=== PATIENT | male | born 1970 | race Caucasian/White ===

== ENCOUNTER 2019-02-07 22:22 | Emergency (ER) | payer OTHER ==
[~2019-02-07] VITALS: Ht 177.8 cm; Wt 88.0 kg
[2019-02-07] MEDS ORDERED: AZOR 5-40 MG T1 EACH ORAL (22:36)
--- NOTE | 2019-02-07 22:45 | NUR ---
ED Nurse Note: Recieved pt from home, here with c/o left groin pain intermittently for past week, pain has increased and worse when he tries to sleep, pt denies nausea, vomiting, fevers, or diarrhea, denies any other discomforts or complaints, pt gowned and assisted to monitoring, will resume care as ordered and closely monitor.
--- NOTE | 2019-02-07 22:54 | Emergency Room Report ---
History of Present Illness General Chief Complaint: Pelvic Pain Source: Patient Present Illness HPI Is a 48-year-old male with history of high blood pressure. He presents with chief complaint of right lower quadrant pain. Is been intermittently for last week. No fever chills. When to come on is sharp and lasted for an hour. No nausea vomiting or diarrhea. No fever chills but no trauma. No urinary complaint. No pain right now. Allergies: Coded Allergies: No Known Allergies (Unverified , 02/07/19) Patient History Past Medical History: see triage record, old chart reviewed, HTN Past Surgical History: none Pertinent Family History: none Social History: Denies: smoking Immunizations: other Reviewed Nursing Documentation: PMH: Agreed; PSxH: Agreed Nursing Documentation-PMH Hx Hypertension: Yes Review of Systems Eye: Denies: eye pain, blurred vision ENT: Denies: ear pain, nose congestion, throat swelling Respiratory: Denies: cough, shortness of breath Cardiovascular: Denies: chest pain, palpitations Gastrointestinal: Reports: abdominal pain; Denies: diarrhea, nausea, vomiting Musculoskeletal: Denies: back pain, joint pain Skin: Denies: rash Neurological: Denies: headache, numbness Endocrine: Denies: increased thirst, increased urine Hematologic/Lymphatic: Denies: easy bruising All Other Systems: negative except mentioned in HPI Physical Exam Vital Signs Date Time Temp Pulse Resp B/P (MAP) Pulse Ox O2 Delivery O2 Flow Rate FiO2 02/07/19 22:32 98.2 68 16 168/97 (120) 95 Room Air Vitals with high blood pressure Sp02 EP Interpretation: reviewed, normal General Appearance: well appearing, no apparent distress, alert Head: normocephalic, atraumatic Eyes: bilateral eye PERRL, bilateral eye EOMI ENT: hearing grossly normal, normal pharynx Neck: full range of motion, supple, no meningismus Respiratory: chest non-tender, lungs clear, normal breath sounds Cardiovascular #1: regular rate, rhythm, no murmur Gastrointestinal: normal bowel sounds, non tender, no mass, no organomegaly, no bruit, non-distended Musculoskeletal: back normal, gait/station normal, normal range of motion Psychiatric: mood/affect normal Medical Decision Making Diagnostic Impression: Primary Impression: Abdominal pain Qualified Codes: R10.31 - Right lower quadrant pain ER Course This patient presents with abdominal pain. No evidence of an acute abdomen. No obstruction. No kidney stone or appendicitis. Will discharge home. CT/MRI/US Diagnostic Results CT/MRI/US Diagnostic Results : Imaging Test Ordered: CT abdomen pelvis Impression Neg per radiologist Last Vital Signs Date Time Temp Pulse Resp B/P (MAP) Pulse Ox O2 Delivery O2 Flow Rate FiO2 02/07/19 22:32 98.2 68 16 168/97 (120) 95 Room Air Status: improved Disposition: HOME, SELF-CARE Condition: Stable Scripts Ibuprofen* (MOTRIN*) 600 Mg Tablet 600 MG ORAL THREE TIMES A DAY, #30 TAB 0 Refills Prov: Yoel Graham MD 02/08/19 Additional Instructions: Follow up with your doctor in 7 days. Return if symptoms worsen. Yoel Graham MD Feb 07, 2019 22:54
[2019-02-07] MEDS ORDERED: Ketorolac 30mg Inj IV ONE (23:00)
[2019-02-07 23:31] LABS: BASOPHILS % (AUTO) 0.6 % (0.0-2.0); EOSINOPHILS % (AUTO) 3.4 % (0.0-3.0); HEMATOCRIT 42.5 % (42.0-52.0); HEMOGLOBIN 15.4 G/DL (14.2-18.0); LYMPHOCYTES % (AUTO) 23.2 % (20.0-45.0); MEAN CORPUSCULAR VOLUME 84 FL (80-99); MONOCYTES % (AUTO) 12.6 % (1.0-10.0); NEUTROPHILS % (AUTO) 60.2 % (45.0-75.0); PLATELET COUNT 214 K/UL (150-450); RED BLOOD COUNT 5.07 M/UL (4.70-6.10); WHITE BLOOD COUNT 5.3 K/UL (4.8-10.8)
[2019-02-07 23:42] LABS: ANION GAP 8 mmol/L (5-15); BLOOD UREA NITROGEN 13 mg/dL (7-18); CALCIUM 9.3 MG/DL (8.5-10.1); CARBON DIOXIDE 31 MMOL/L (21-32); CHLORIDE 105 MMOL/L (98-107); CREATININE 1.1 MG/DL (0.55-1.30); POTASSIUM 3.3 MMOL/L (3.5-5.1); SODIUM 144 MMOL/L (136-145)
--- NOTE | 2019-02-07 23:56 | Diagnostic Imaging Report ---
Indication: Abdominal pain for one week Technique: Spiral acquisitions obtained through the abdomen and pelvis. No oral contrast utilized, per emergency room physician request No IV contrast utilized, per referring physician request.. Multiplanar reconstructions were generated. Total dose length product 1178 mGycm. CTDIvol(s) 21 mGy. Dose reduction achieved using automated exposure control Comparison: None Findings: No evidence of colonic diverticulosis or diverticulitis is evident. The appendix is normal. No small bowel distention. No free or loculated intraperitoneal gas or fluid is evident. The distal esophagus, stomach, duodenum are unremarkable. Lack of IV contrast limits assessment of solid organs. The liver demonstrates a cyst in segment 7. The gallbladder is nondistended, otherwise unremarkable. The pancreas is unremarkable. The spleen is borderline enlarged, measuring 14 cm long axis dimension. The adrenals are unremarkable. The right kidney demonstrates a 2 cm interpolar region cyst. The left kidney is unremarkable. No renal or ureteral calculi, hydronephrosis, or hydroureter demonstrated. No retroperitoneal or mesenteric mass or adenopathy. No pelvic mass or adenopathy. Unremarkable bladder. The included lung bases are clear. The bones are unremarkable, Impression: Essentially unremarkable exam. No acute or significant abnormality demonstrated. Incidental finding of hepatic and renal cysts This agrees with the preliminary interpretation provided overnight by [facility] teleradiology service. The CT scanner at [facility] is accredited by the [employer] and the scans are performed using protocols designed to limit radiation exposure to as low as reasonably achievable to attain images of sufficient resolution adequate for diagnostic evaluation.
[2019-02-08] VITALS: BP 151/82
--- NOTE | 2019-02-08 00:10 | NUR ---
ER DISCHARGE NOTE: Patient is cleared to be discharged per ERMD, pt is aox4, on room air, with stable vital signs. pt was given dc and prescription instructions, pt was able to verbalize understanding, pt id band and iv site removed without complications. pt is able to ambulate with steady gait. pt took all belongings.
[2019-02-08] MEDS ORDERED: IBUPROFEN600 MG ORAL (00:16)
[2019-02-08 00:20] VITALS: BP 151/82
[2019-02-08 00:26] LABS: APPEARANCE,URINE CLEAR; BILIRUBIN, URINE NEGATIVE (NEGATIVE); COLOR,URINE PALE YELLOW; GLUCOSE, URINE (UA) NEGATIVE (NEGATIVE); KETONES,URINE NEGATIVE (NEGATIVE); LEUKOCYTE ESTERASE ,URINE NEGATIVE (NEGATIVE); NITRITE,URINE NEGATIVE (NEGATIVE); PH,URINE 7 (4.5-8.0); PROTEIN,URINE NEGATIVE (NEGATIVE); UROBILINOGEN,URINE NORMAL MG/DL (0.0-1.0)
== END 2019-02-08 00:20 | disposition home or self-care (01) ==
LOC: EMR 22:59
DX: R10.31 Right lower quadrant pain (principal); I10 Essential (primary) hypertension
CPT/HCPCS: 36415; 74176; 80048; 81003; 85025; 96374; 99284; J1885